=== PATIENT | female | born 1995 | race Caucasian/White ===

== ENCOUNTER 2021-12-16 22:15 | Inpatient (IN) | payer SELFPAY ==
[2021-12-16] MEDS ORDERED: Acetaminophen 500 MG TAB ONE (22:36)
[2021-12-16 23:14] LABS: ALT (SGPT) 17 U/L (8-55); AST (SGOT) 20 U/L (5-34); Albumin 3.5 g/dL (3.5-5.0); Alkaline Phosphatase 69 U/L (40-110); Anion Gap 15 mmol/L (10-20); BUN (Urea Nitrogen) 18 mg/dL (7.0-18.7); Bilirubin, Total 0.5 mg/dL (0.2-1.2); CK (CPK) 9 U/L (29-168); Calc. Creatinine Clearance 0 mL/min (70-130); Calcium 9.2 mg/dL (7.8-10.44); Carbon Dioxide 23 mmol/L (22-29); Chloride 98 mmol/L (98-107); Globulin 4.4 g/dL (2.4-3.5); Glucose 91 mg/dL (70-105); Hemoglobin 7.1 g/dL (12.0-16.0); Mean Corpuscular HGB CONC 29.1 g/dL (32.0-36.0); Mean Corpuscular Hemoglobin 17.9 pg (27.0-31.0); Mean Corpuscular Volume 61.6 fL (78.0-98.0); Mean Platelet Volume 5.9 fL (7.4-10.4); Platelet Count 415 thou/uL (130-400); Potassium 3.4 mmol/L (3.5-5.1); Protein, Total 7.9 g/dL (6.0-8.3); Red Blood Cell (RBC) Count 3.95 mill/uL (4.20-5.40); Sodium 133 mmol/L (136-145)
[2021-12-16 23:17] LABS: BHCG - Serum Negative (NEGATIVE); Pregs Control Background? CLEAR/WHITE (CLR/WHITE); Pregs Control Bar Appear? YES (CONTROL BAR)
[2021-12-16 23:37] LABS: Anisocytosis MODERATE=16-30 cells (100X) (0-5/hpf); Band 13 % (5-11); Hypochromia SLIGHT = 6-15 cells (100X) (0-5/hpf); Lymphocytes 12 % (21-51); MDiff Complete? YES; Microcytosis MODERATE=15-30 cells (100X) (0-5/hpf); Monocytes 15 % (0-10); Neutrophil 60 % (42-75); Platelet Morphology Comment Appears Increased; Reflex for Review?? YES; Target Cells SLIGHT = 2-5 cells (100X) (0-1/hpf); White Blood Cell (WBC) Count 12.1 thou/uL (4.8-10.8)
[2021-12-17] LABS: INR-International Normal Ratio 1.1; Prothrombin Time 14.6 sec (12.0-14.7)
[2021-12-17 00:01] LABS: PTT 38.7 sec (22.9-36.1)
[2021-12-17 00:30] LABS: Bacteria/HPF 3+ HPF (None Seen); Bilirubin Negative (Negative); Blood, Urine Negative (Negative); Clarity Turbid (Clear); Glucose, Urine (Dipstick) Normal (Negative); Ketone, Urine Negative (Negative); Leukocyte 500 Leu/uL (Negative); Nitrite 2+ (Negative); Protein, Urine (Dipstick) 30 mg/dL (Neg-Trace); RBC/HPF 0-3 HPF (0-3); Specific Gravity, Urine 1.014 (1.002-1.036); Squamous Epithelial 0-3 HPF (0-3); Urobilinogen Normal mg/dL (Less than 2); WBC/HPF 21-50 HPF (0-3)
[2021-12-17 01:12] LABS: Iron 13 ug/dL (50-170); Iron Binding Capacity, Total 329 mcg/dL (265-497)
[2021-12-17] MEDS ORDERED: cefTRIAXone\\ROCEPHIN 1 GM VIAL ONE (01:47)
[2021-12-17] MEDS ORDERED: Electrolyte Replacement Protocol 1 EACH FS SCH ×2 (02:15→02:45)
[2021-12-17] MEDS ORDERED: Ondansetron PF 4 MG/2 ML Vial IVP PRN (02:33)
[2021-12-17] MEDS ORDERED: Ondansetron ODT 4 MG TAB PO PRN (02:33)
[2021-12-17] MEDS ORDERED: Acetaminophen 650 MG Suppository PR PRN (02:33)
[2021-12-17 03:11] LABS: Magnesium 1.9 mg/dL (1.6-2.6)
[2021-12-17] MEDS ORDERED: Pantoprazole 40 MG VIAL IVP SCH (07:22)
[2021-12-17 07:23] LABS: Hemoglobin 7.6 g/dL (12.0-16.0); Mean Corpuscular HGB CONC 27.8 g/dL (32.0-36.0); Mean Corpuscular Hemoglobin 18.5 pg (27.0-31.0); Mean Corpuscular Volume 66.4 fL (78.0-98.0); Mean Platelet Volume 10.8 fL (7.4-10.4); Platelet Count 382 thou/uL (130-400); RBC Distribution Width 20.8 % (11.5-14.5); White Blood Cell (WBC) Count 11.8 thou/uL (4.8-10.8)
[2021-12-17 07:47] LABS: Glucose 75 mg/dL (70-105)
[2021-12-17 07:49] LABS: Carbon Dioxide Less than 16 mmol/L (22-29)
[2021-12-17 07:51] LABS: BUN (Urea Nitrogen) 16 mg/dL (7.0-18.7); Calc. Creatinine Clearance 86 mL/min (70-130)
[2021-12-17 07:53] LABS: Calcium 8.9 mg/dL (7.8-10.44); Chloride 108 mmol/L (98-107); Potassium 5.3 mmol/L (3.5-5.1); Sodium 136 mmol/L (136-145)
[2021-12-17] MEDS ORDERED: Potassium Chloride 20 MEQ TAB PO SCH (08:00)
[2021-12-17] MEDS ORDERED: Magnesium 2 GM/50 ML(in water) 2 GM in Premix Bag 1 BAG IVPB SCH (08:00)
[2021-12-17 08:04] LABS: Band 19 % (5-11); Eosinophils 2 % (0-10); Hypochromia MODERATE=16-30 cells (100X) (0-5/hpf); Lymphocytes 8 % (21-51); MDiff Complete? YES; Metamyelocyte 2 % (0-0); Microcytosis MODERATE=15-30 cells (100X) (0-5/hpf); Monocytes 20 % (0-10); Myelocyte 3 % (0-0); Neutrophil 44 % (42-75); Platelet Morphology Comment Appears Adequate; Polychromasia SLIGHT = 2-3 cells (100X) (0-2/hpf)
[2021-12-17] MEDS ORDERED: IRON SUCROSE COMPLEX 100 MG/5 ML SLOW IVP SCH ×2 (08:15→09:00)
[2021-12-17] MEDS ORDERED: Sodium Ferric Gluconate 62.5 MG/5 ML AMP SLOW IVP SCH (09:00)
[2021-12-17] MEDS: Acetaminophen 325 MG TAB PO PRN ×2 (12:07→21:59)
[2021-12-17] MEDS: Aluminum & Magnesium Hydroxide 60 ML, diphenhydrAMINE 150 MG, Lidocaine 2% Viscous Solu... SSW SCH ×3 (13:01→21:54)
[2021-12-17] MEDS ORDERED: Iron, Sodium Ferric Gluconate 125 MG in Sodium Chloride 0.9% 100 ML IVPB SCH (15:30)
[2021-12-17] MEDS ORDERED: cefTRIAXone\\ROCEPHIN 1 GM in Sodium Chloride 0.9% 100 ML IVPB SCH (21:00)
[2021-12-17] MEDS: guaiFENesin ER 600 MG TAB PO SCH (21:51)
[2021-12-17] MEDS: Benzonatate 100 MG CAP PO PRN (21:52)
[2021-12-17] MEDS: Pantoprazole 40 MG VIAL IVP SCH (21:53)
[2021-12-18 07:28] LABS: Hemoglobin 7.4 g/dL (12.0-16.0); Mean Corpuscular HGB CONC 30.1 g/dL (32.0-36.0); Mean Corpuscular Hemoglobin 19.2 pg (27.0-31.0); Mean Corpuscular Volume 63.8 fL (78.0-98.0); Mean Platelet Volume 11.3 fL (7.4-10.4); Platelet Count 400 thou/uL (130-400); RBC Distribution Width 20.8 % (11.5-14.5); Red Blood Cell (RBC) Count 3.85 mill/uL (4.20-5.40); White Blood Cell (WBC) Count 9.6 thou/uL (4.8-10.8)
[2021-12-18 07:30] LABS: ALT (SGPT) 11 U/L (8-55); AST (SGOT) 12 U/L (5-34); Alkaline Phosphatase 55 U/L (40-110); Anion Gap 14 mmol/L (10-20); BUN (Urea Nitrogen) 10 mg/dL (7.0-18.7); Bilirubin, Total 0.3 mg/dL (0.2-1.2); Calc. Creatinine Clearance 95 mL/min (70-130); Calcium 8.1 mg/dL (7.8-10.44); Carbon Dioxide 23 mmol/L (22-29); Chloride 104 mmol/L (98-107); Globulin 3.1 g/dL (2.4-3.5); Glucose 87 mg/dL (70-105); Potassium 3.8 mmol/L (3.5-5.1); Protein, Total 6.1 g/dL (6.0-8.3); Sodium 137 mmol/L (136-145)
[2021-12-18 07:32] LABS: Reticulocyte Count 0.4 % (0.5-1.5)
[2021-12-18] MEDS ORDERED: guaiFENesin/Codeine 200 mg/20 mg 10 ml Cup PO PRN (08:01)
[2021-12-18] MEDS ORDERED: guaiFENesin/Codeine 200 mg/20 mg 10 ml Cup PO SCH (08:15)
[2021-12-18] MEDS: guaiFENesin ER 600 MG TAB PO SCH ×2 (09:50→22:24)
[2021-12-18] MEDS: Ferrous Gluconate 324 MG TAB PO SCH (09:50)
[2021-12-18] MEDS: Pantoprazole 40 MG VIAL IVP SCH ×2 (09:53→22:25)
[2021-12-18 10:41] LABS: Band 26 % (5-11); Eosinophils 1 % (0-10); Lymphocytes 11 % (21-51); Metamyelocyte 3 % (0-0); Monocytes 17 % (0-10); Myelocyte 1 % (0-0); Neutrophil 39 % (42-75); Platelet Morphology Comment Appears Adequate; Reactive Lymphocytes 1 % (0-10)
[2021-12-18 10:42] LABS: Hypochromia MODERATE=16-30 cells (100X) (0-5/hpf); Microcytosis MODERATE=15-30 cells (100X) (0-5/hpf); Polychromasia SLIGHT = 2-3 cells (100X) (0-2/hpf); Target Cells SLIGHT = 2-5 cells (100X) (0-1/hpf); Toxic Granulation SLIGHT
[2021-12-18 10:43] LABS: MDiff Complete? YES
[2021-12-18] MEDS: Aluminum & Magnesium Hydroxide 60 ML, diphenhydrAMINE 150 MG, Lidocaine 2% Viscous Solu... SSW SCH ×4 (10:52→22:24)
[2021-12-18] MEDS ORDERED: Iopamidol-370 76% 500 ML 1 ML ONE (15:39)
[2021-12-18] MEDS ORDERED: Meropenem 1 GM in Sodium Chloride 0.9% 100 ML IVPB SCH ×2 (18:15→22:00)
[2021-12-18] MEDS ORDERED: Oxybutynin 5 MG TAB PO PRN (18:15)
[2021-12-19] MEDS: Meropenem 1 GM in Sodium Chloride 0.9% 100 ML IVPB SCH ×3 (02:45→17:25)
[2021-12-19] MEDS: guaiFENesin ER 600 MG TAB PO SCH ×2 (09:10→22:13)
[2021-12-19] MEDS: Pantoprazole 40 MG VIAL IVP SCH ×2 (09:10→22:13)
[2021-12-19] MEDS: Ferrous Gluconate 324 MG TAB PO SCH (09:10)
[2021-12-19] MEDS: Acetaminophen 325 MG TAB PO PRN (09:10)
[2021-12-19] MEDS: Aluminum & Magnesium Hydroxide 60 ML, diphenhydrAMINE 150 MG, Lidocaine 2% Viscous Solu... SSW SCH ×4 (09:18→22:14)
[2021-12-19] MEDS ORDERED: Morphine 2 MG/ML VIAL SLOW IVP PRN (09:28)
[2021-12-19] MEDS ORDERED: HYDROcodone/Acetaminophen 5/325 mg Tablet PO SCH (09:30)
[2021-12-19 13:21] VITALS: BMI 21.4
[2021-12-19] MEDS: Benzonatate 100 MG CAP PO PRN (22:21)
[2021-12-19] MEDS: HYDROcodone/Acetaminophen 5/325 mg Tablet PO PRN (22:21)
[2021-12-20] MEDS: Meropenem 1 GM in Sodium Chloride 0.9% 100 ML IVPB SCH ×3 (03:16→18:33)
[2021-12-20 07:26] LABS: Anion Gap 11 mmol/L (10-20); BUN (Urea Nitrogen) 14 mg/dL (7.0-18.7); CRP (Inflammatory) 6.34 mg/dL (= or < 0.5); Calc. Creatinine Clearance 101 mL/min (70-130); Calcium 8.9 mg/dL (7.8-10.44); Carbon Dioxide 28 mmol/L (22-29); Chloride 102 mmol/L (98-107); Glucose 87 mg/dL (70-105); Sodium 137 mmol/L (136-145)
[2021-12-20] MEDS: Aluminum & Magnesium Hydroxide 60 ML, diphenhydrAMINE 150 MG, Lidocaine 2% Viscous Solu... SSW SCH ×4 (08:56→20:25)
[2021-12-20] MEDS: Ferrous Gluconate 324 MG TAB PO SCH (08:57)
[2021-12-20] MEDS: Pantoprazole 40 MG VIAL IVP SCH ×2 (08:58→20:25)
[2021-12-20] MEDS: guaiFENesin ER 600 MG TAB PO SCH ×2 (08:58→20:25)
[2021-12-20] MEDS: HYDROcodone/Acetaminophen 5/325 mg Tablet PO PRN (10:14)
[2021-12-20] MEDS: Benzonatate 100 MG CAP PO PRN (10:14)
[2021-12-20 14:51] LABS: EliA Celiac New Method **** NEW METHOD ****
[2021-12-21] MEDS: Meropenem 1 GM in Sodium Chloride 0.9% 100 ML IVPB SCH ×2 (02:17→08:22)
[2021-12-21 07:48] VITALS: BP 103/67; TEMP 98.2
[2021-12-21 07:50] LABS: Anion Gap 12 mmol/L (10-20); BUN (Urea Nitrogen) 13 mg/dL (7.0-18.7); CRP (Inflammatory) 4.24 mg/dL (= or < 0.5); Calc. Creatinine Clearance 105 mL/min (70-130); Calcium 9.7 mg/dL (7.8-10.44); Carbon Dioxide 28 mmol/L (22-29); Chloride 101 mmol/L (98-107); Glucose 81 mg/dL (70-105); Potassium 4.3 mmol/L (3.5-5.1); Sodium 137 mmol/L (136-145)
[2021-12-21] MEDS ORDERED: HYDROcodone/Acetaminophen 5/325 mg Tablet PO SCH (08:15)
[2021-12-21] MEDS: Aluminum & Magnesium Hydroxide 60 ML, diphenhydrAMINE 150 MG, Lidocaine 2% Viscous Solu... SSW SCH ×2 (08:20→11:56)
[2021-12-21] MEDS: Pantoprazole 40 MG VIAL IVP SCH (08:21)
[2021-12-21] MEDS: guaiFENesin ER 600 MG TAB PO SCH (08:21)
[2021-12-21] MEDS: Ferrous Gluconate 324 MG TAB PO SCH (08:21)
== END 2021-12-21 13:09 | disposition home or self-care (01) | DRG 871 ==
LOC: ERS 22:15 → T4-A 12-17 02:05 → OBSVTOIN 12-17 16:16
PROVIDERS: ADMIT Family Medicine; ATTEND Family Medicine
PROC: 30233N1 Transfusion of Nonautologous Red Blood Cells into Peripheral Vein, Percutaneous Approach (ICD-10-PCS; principal; 2021-12-17)
PROC: 3E03329 Introduction of Other Anti-infective into Peripheral Vein, Percutaneous Approach (ICD-10-PCS; 2021-12-17)
DX: A41.4 Sepsis due to anaerobes (principal); N15.1 Renal and perinephric abscess; N10 Acute pyelonephritis; D50.9 Iron deficiency anemia, unspecified; Z20.822 Contact with and (suspected) exposure to COVID-19; N28.89 Other specified disorders of kidney and ureter; J20.9 Acute bronchitis, unspecified; N26.1 Atrophy of kidney (terminal); N13.70 Vesicoureteral-reflux, unspecified; Z87.440 Personal history of urinary (tract) infections
CPT/HCPCS: 36415; 36416; 36430; 70450; 71045; 71046; 74177; 76770; 80048; 80053; 81003; 81015; 82550; 82607; 82728; 82746; 83516; 83540; 83550; 83605; 83615; 83735; 84703; 85025; 85046; 85060; 85610; 85730; 86140; 86850; 86900; 86901; 87040; 87077; 87086; 87186; 87804; 93005; 93010; 93306; 94760; 96361; 96365; 96367; 96375; C9113; G0378; J0696; J2185; J2270; J2916; J3475; J3490; P9016; Q0163; Q9967; U0003; U0005